=== PATIENT | male | born 1945 | race Caucasian/White ===

== ENCOUNTER 2018-12-23 21:58 | Inpatient (IN) | payer MEDICARE, MEDICAID ==
[~2018-12-23] VITALS: Ht 162.6 cm; Wt 110.8 kg
[~2018-12-23 21:58] MED LIST: ALLO100T PO; ATOR20TA PO; COL0.6T PO; COR3.125T PO; DABI150C PO; INSU100I12 SQ; LINA5TAB4 PO; MULT-1179 PO; OMEG-79 PO; SPIR25TA5 PO
[2018-12-23] MEDS: IDARUCIZUMAB 2.5 GM/50 ML IV SCH ×2 (22:37→22:50)
[2018-12-23 22:44] LABS: BASOPHILS # (AUTO) 0.1 X10'3 (0-0.2); BASOPHILS % (AUTO) 0.8 % (0-1); EOSINOPHILS # (AUTO) 0.4 X10'3 (0-0.9); EOSINOPHILS % (AUTO) 5.3 % (0-6); HEMATOCRIT 33.8 % (42.0-52.0); HEMOGLOBIN 11.1 g/dl (14.0-17.9); LYMPHOCYTES # (AUTO) 0.6 X10'3 (1.1-4.8); LYMPHOCYTES % (AUTO) 8.5 % (21-51); MEAN CORPUSCULAR HEMOGLOBIN 34.7 PG (27.0-31.0); MEAN CORPUSCULAR HGB CONC 32.8 g/dL (33.0-36.5); MEAN CORPUSCULAR VOLUME 105.7 FL (78-98); MEAN PLATELET VOLUME 10.4 FL (7.4-10.4); MONOCYTES # (AUTO) 1.2 X10'3 (0-0.9); MONOCYTES % (AUTO) 17.4 % (2-12); NEUTROPHILS # (AUTO) 4.6 X10'3 (1.8-7.7); PLATELET COUNT 98 X10'3 (140-440); RED CELL DISTRIBUTION WIDTH 17.3 % (11.5-14.5); WHITE BLOOD COUNT 6.8 X10'3 (4.5-11.0)
[2018-12-23 22:55] LABS: ALANINE AMINOTRANSFERASE 9 U/L (12-78); ALBUMIN 3.3 G/DL (3.4-5.0); ALBUMIN/GLOBULIN RATIO 0.8 (1.1-1.5); ALKALINE PHOSPHATASE 62 IU/L (46-116); ANION GAP 12 (8-16); ASPARTATE AMINO TRANSFERASE 10 U/L (10-37); BILIRUBIN,TOTAL 1.3 MG/DL (0.1-1.0); BLOOD UREA NITROGEN 126 MG/DL (7-18); BUN/CREATININE RATIO 29.9 (5.4-32.0); CALCIUM 8.6 MG/DL (8.5-10.1); CHLORIDE 108 MMOL/L (99-107); CREATININE 4.21 MG/DL (0.60-1.10); GLUCOSE 131 MG/DL (70-104); MAGNESIUM 2.2 MG/DL (1.5-2.4); PHOSPHORUS 5.4 MG/DL (2.3-4.5); POTASSIUM 4.4 MMOL/L (3.5-5.1); SODIUM 141 MMOL/L (135-145); TOTAL PROTEIN 7.4 G/DL (6.4-8.2); eGFR 14 ML/MIN
[2018-12-23] MEDS ORDERED: FURO-150 PO (23:09)
[2018-12-23] MEDS ORDERED: ASPI-611 PO (23:10)
[2018-12-23] MEDS ORDERED: LISI2.5T2 PO (23:11)
[2018-12-23] MEDS ORDERED: ALLO100T PO (23:13)
[2018-12-23] MEDS ORDERED: SPIR50TA5 PO (23:14)
[2018-12-23] MEDS ORDERED: CARV3.12 PO (23:15)
[2018-12-23] MEDS ORDERED: COLC0.6T69 PO (23:15)
[2018-12-23] MEDS ORDERED: LINA5TAB4 PO (23:16)
[2018-12-23] MEDS ORDERED: POTA8TAB57 (23:18)
[2018-12-23 23:23] LABS: ANISOCYTOSIS 1+; ELLIPTOCYTES FEW; PLATELET ESTIMATE DECREASED
[2018-12-24] VITALS (20 sets, daily range): BP systolic 70–123; BP diastolic 20–67
[2018-12-24] MEDS ORDERED: glucagon, human recombinant 1mg kit SUBCUT PRN (00:55)
[2018-12-24] MEDS ORDERED: ondansetron/PF 4mg/2ml inj IV PRN (00:55)
[2018-12-24] MEDS ORDERED: acetaminophen 650mg rectal suppository RC PRN (00:55)
[2018-12-24] MEDS ORDERED: insulin Lispro (HumaLOG) vial - multi-dose SQ SCH (00:55)
[2018-12-24] MEDS ORDERED: acetaminophen 325mg tablet PO PRN ×2 (00:55)
[2018-12-24] MEDS ORDERED: dextrose ORAL solution 15 GM/59 ML bottle PO PRN ×2 (00:55)
[2018-12-24] MEDS ORDERED: MESSAGE TO PHARMACY PO ONE (00:55)
[2018-12-24] MEDS ORDERED: dextrose 50%-water 50ml dispensing syringe IV PRN ×2 (00:55)
[2018-12-24] MEDS: albumin (human) 25% 100 ML IV solution IV SCH ×3 (01:17→17:10)
[2018-12-24] MEDS: bumetanide 0.25mg/ml 4ml vial IV SCH ×2 (01:41→09:59)
--- NOTE | 2018-12-24 02:43 | NUR ---
Patient here from ER into room CICU 2010. I have received report from Ronald PEDERSEN and had the opportunity to ask questions and assume patient care.
[2018-12-24 05:29] LABS: PLATELET COUNT 74 X10'3 (140-440)
[2018-12-24 05:37] LABS: BASOPHILS % (AUTO) 0.8 % (0-1); EOSINOPHILS # (AUTO) 0.4 X10'3 (0-0.9); EOSINOPHILS % (AUTO) 7.5 % (0-6); HEMATOCRIT 28.4 % (42.0-52.0); HEMOGLOBIN 9.7 g/dl (14.0-17.9); LYMPHOCYTES # (AUTO) 0.5 X10'3 (1.1-4.8); LYMPHOCYTES % (AUTO) 9.4 % (21-51); MEAN CORPUSCULAR HEMOGLOBIN 36.2 PG (27.0-31.0); MEAN CORPUSCULAR HGB CONC 34.2 g/dL (33.0-36.5); MEAN CORPUSCULAR VOLUME 105.8 FL (78-98); MONOCYTES % (AUTO) 20.1 % (2-12); NEUTROPHILS # (AUTO) 3.1 X10'3 (1.8-7.7); NEUTROPHILS % (AUTO) 62.2 % (42-75); PLATELET COUNT 80 X10'3 (140-440); RED BLOOD COUNT 2.68 X10'6 (4.70-6.10); RED CELL DISTRIBUTION WIDTH 16.8 % (11.5-14.5); WHITE BLOOD COUNT 5.1 X10'3 (4.5-11.0)
[2018-12-24] MEDS ORDERED: albumin (human) 25% 100 ML IV solution IV ONE (05:40)
[2018-12-24 05:47] LABS: ALANINE AMINOTRANSFERASE 7 U/L (12-78); ALBUMIN 3.4 G/DL (3.4-5.0); ALBUMIN/GLOBULIN RATIO 0.9 (1.1-1.5); ALKALINE PHOSPHATASE 52 IU/L (46-116); ANION GAP 11 (8-16); ASPARTATE AMINO TRANSFERASE 10 U/L (10-37); BILIRUBIN,TOTAL 1.3 MG/DL (0.1-1.0); BLOOD UREA NITROGEN 126 MG/DL (7-18); BUN/CREATININE RATIO 30.8 (5.4-32.0); CALCIUM 8.5 MG/DL (8.5-10.1); CHLORIDE 109 MMOL/L (99-107); CREATININE 4.09 MG/DL (0.60-1.10); GLUCOSE 102 MG/DL (70-104); MAGNESIUM 2.2 MG/DL (1.5-2.4); PHOSPHORUS 5.5 MG/DL (2.3-4.5); POTASSIUM 4.5 MMOL/L (3.5-5.1); SODIUM 142 MMOL/L (135-145); TOTAL CARBON DIOXIDE 21.9 MMOL/L (24-32); TOTAL PROTEIN 7.1 G/DL (6.4-8.2); eGFR 14 ML/MIN
[2018-12-24 05:48] LABS: D-DIMER 3.48 MG/L FEU (0-0.50); PARTIAL THROMBOPLASTIN TIME 49 SECONDS (22-32)
--- NOTE | 2018-12-24 06:35 | NUR ---
Pt hypotensive after albuminWillard updated. No new orders at this time. Problems reprioritized. Patient report given, questions answered & plan of care reviewed with Luz PEDERSEN .
[2018-12-24] MEDS ORDERED: DOPamine 400mg/D5W 250ml 250 ML IV SCH (06:50)
[2018-12-24 07:27] LABS: CLARITY,URINE CLEAR (Clear); COLOR,URINE YELLOW (Yellow); GLUCOSE, URINE NEGATIVE (Neg); KETONES,URINE NEGATIVE (Neg); LEUKOCYTE ESTERASE ,URINE NEGATIVE (Neg); NITRITES, URINE NEGATIVE (Neg); OCCULT BLOOD,URINE TRACE-INTACT (Neg); PH,URINE 5.5 (4.8-8.0); PROTEIN,URINE 30 mg/dl (Neg); UROBILINOGEN,URINE 0.2 E.U/dL (0.2-1.0)
[2018-12-24 07:35] LABS: BACTERIA,URINE NONE SEEN /HPF (Neg); RBC,URINE NONE SEEN /HPF (0-2); UA COLLECTION TYPE NON-SPECIFIED; WBC,URINE 0-4 /HPF (0-4)
[2018-12-24 07:36] LABS: COARSE GRANULAR CAST 0-3 /LPF (NEGATIVE); MUCUS STRANDS FEW /LPF (Neg); SQUAMOUS EPITHELIAL CELL,UR FEW /LPF (FEW)
[2018-12-24] MEDS ORDERED: famotidine 20mg tablet PO SCH (08:00)
[2018-12-24] MEDS: docusate sod 100mg capsule PO SCH ×2 (08:00→20:00)
[2018-12-24 08:10] LABS: OCCULT BLOOD STOOL POSITIVE (Neg)
[2018-12-24] MEDS: furosemide inj 100 MG in normal saline 100ml IV soln 90 ML IV SCH ×2 (13:47→21:13)
[2018-12-24 14:01] LABS: HEMATOCRIT 27.1 % (42.0-52.0); HEMOGLOBIN 9.1 g/dl (14.0-17.9); MEAN CORPUSCULAR HEMOGLOBIN 35.6 PG (27.0-31.0); MEAN CORPUSCULAR HGB CONC 33.5 g/dL (33.0-36.5); MEAN CORPUSCULAR VOLUME 106.2 FL (78-98); MEAN PLATELET VOLUME 10.5 FL (7.4-10.4); PLATELET COUNT 74 X10'3 (140-440); RED BLOOD COUNT 2.55 X10'6 (4.70-6.10); RED CELL DISTRIBUTION WIDTH 16.7 % (11.5-14.5); WHITE BLOOD COUNT 4.5 X10'3 (4.5-11.0)
[2018-12-24] MEDS ORDERED: albumin (Human) 5% 250ml 250 ML IV SCH (16:00)
[2018-12-24] MEDS ORDERED: NORepinephrine 8mg/ 250ml NS 250 ML IV PRN (17:41)
--- NOTE | 2018-12-24 18:30 | NUR ---
Patient in room CICU 2010. I have received report from Keara PEDERSEN and had the opportunity to ask questions and assume patient care.
[2018-12-24] MEDS: DOBUTamine-DoBUTrex 500mg/D5W 250 ML IV PRN (19:01)
[2018-12-24] MEDS ORDERED: gelatin sponge, absorbable (Gelfoam 100) sponge TP ONE (20:05)
[2018-12-24 20:57] LABS: HEMATOCRIT 26.5 % (42.0-52.0); HEMOGLOBIN 8.9 g/dl (14.0-17.9); MEAN CORPUSCULAR HEMOGLOBIN 35.5 PG (27.0-31.0); MEAN CORPUSCULAR HGB CONC 33.6 g/dL (33.0-36.5); MEAN CORPUSCULAR VOLUME 105.6 FL (78-98); MEAN PLATELET VOLUME 10.7 FL (7.4-10.4); PLATELET COUNT 73 X10'3 (140-440); RED BLOOD COUNT 2.51 X10'6 (4.70-6.10); RED CELL DISTRIBUTION WIDTH 16.8 % (11.5-14.5); WHITE BLOOD COUNT 4.8 X10'3 (4.5-11.0)
[2018-12-24] MEDS ORDERED: insulin glargine (Lantus) pen - multi-dose SQ SCH (21:00)
[2018-12-24 21:16] LABS: ALBUMIN 3.6 G/DL (3.4-5.0); ANION GAP 16 (8-16); BLOOD UREA NITROGEN 126 MG/DL (7-18); BUN/CREATININE RATIO 31.7 (5.4-32.0); CALCIUM 8.5 MG/DL (8.5-10.1); CHLORIDE 109 MMOL/L (99-107); CREATININE 3.97 MG/DL (0.60-1.10); GLUCOSE 116 MG/DL (70-104); MAGNESIUM 2.2 MG/DL (1.5-2.4); PHOSPHORUS 5.3 MG/DL (2.3-4.5); POTASSIUM 4.2 MMOL/L (3.5-5.1); SODIUM 143 MMOL/L (135-145); TOTAL CARBON DIOXIDE 18.4 MMOL/L (24-32); eGFR 15 ML/MIN
[2018-12-25] VITALS (20 sets, daily range): BP systolic 80–117; BP diastolic 21–80
[2018-12-25] MEDS: albumin (human) 25% 100 ML IV solution IV SCH ×3 (00:21→16:25)
[2018-12-25 03:04] LABS: BASOPHILS % (AUTO) 0.4 % (0-1); EOSINOPHILS # (AUTO) 0.2 X10'3 (0-0.9); EOSINOPHILS % (AUTO) 3.9 % (0-6); HEMATOCRIT 26.8 % (42.0-52.0); LYMPHOCYTES # (AUTO) 0.2 X10'3 (1.1-4.8); LYMPHOCYTES % (AUTO) 5.8 % (21-51); MEAN CORPUSCULAR HEMOGLOBIN 35.8 PG (27.0-31.0); MEAN CORPUSCULAR HGB CONC 33.6 g/dL (33.0-36.5); MEAN CORPUSCULAR VOLUME 106.8 FL (78-98); MEAN PLATELET VOLUME 10.6 FL (7.4-10.4); MONOCYTES # (AUTO) 0.3 X10'3 (0-0.9); MONOCYTES % (AUTO) 6.1 % (2-12); NEUTROPHILS # (AUTO) 3.6 X10'3 (1.8-7.7); NEUTROPHILS % (AUTO) 83.8 % (42-75); PLATELET COUNT 66 X10'3 (140-440); RED BLOOD COUNT 2.51 X10'6 (4.70-6.10); WHITE BLOOD COUNT 4.3 X10'3 (4.5-11.0)
[2018-12-25 03:06] LABS: ALBUMIN 3.8 G/DL (3.4-5.0); ALBUMIN/GLOBULIN RATIO 1.2 (1.1-1.5); ALKALINE PHOSPHATASE 42 IU/L (46-116); ANION GAP 15 (8-16); ASPARTATE AMINO TRANSFERASE 10 U/L (10-37); BILIRUBIN,TOTAL 1.5 MG/DL (0.1-1.0); BLOOD UREA NITROGEN 124 MG/DL (7-18); BUN/CREATININE RATIO 30.7 (5.4-32.0); CALCIUM 8.4 MG/DL (8.5-10.1); CHLORIDE 109 MMOL/L (99-107); CREATININE 4.04 MG/DL (0.60-1.10); GLUCOSE 112 MG/DL (70-104); PHOSPHORUS 5.6 MG/DL (2.3-4.5); POTASSIUM 4.3 MMOL/L (3.5-5.1); SODIUM 142 MMOL/L (135-145); TOTAL CARBON DIOXIDE 18.5 MMOL/L (24-32); TOTAL PROTEIN 6.9 G/DL (6.4-8.2); eGFR 15 ML/MIN
[2018-12-25] MEDS ORDERED: proCHLORperazine 10 MG/2 ml inj IV PRN (03:40)
[2018-12-25 03:41] LABS: PARTIAL THROMBOPLASTIN TIME 77 SECONDS (22-32)
[2018-12-25 03:42] LABS: ALANINE AMINOTRANSFERASE < 6 U/L (12-78)
[2018-12-25] MEDS: pantoprazole 40 MG vial IV SCH ×2 (03:50→07:44)
--- NOTE | 2018-12-25 04:19 | NUR ---
Pt having bouts of nausea, retching. Small amount emesis that is mostly mucus with scant blood. Mouth bleeding which he has been swallowing. Zofran given and was ineffective. Compazine and Protonix given. Pt is bearing down, moaning and shivering after retching. Dobutamine titrated between 2-4mcg for map between 65-70 as ordered. Urine output has also dropped the last 2 hrs and has become more cola colored, discussed with Sukhdeep Mora NP and Lasix gtt increased to 15mg/hr. Frequent flatus with abdominal cramping, small amount mucus stool when pt placed on bedpan, multiple times throughout shift. Critical PTT 77, INR increased to 3.9, Sukhdeep Mora COMPUTER TECH[employer]ICAL SUPPORT SPECIALIST aware. Central line in groin continued to ooze small amount. Dressing was changed using gelfoam at beginning of shift and pt will not allow a second dressing change due to discomfort of cleansing excoriated area under pannus.
--- NOTE | 2018-12-25 06:27 | NUR ---
Student documentation: I have reviewed and agree with all interventions, assessments performed and documented by Dalila VALENZUELA. Student Medication Administration: For this medication-pass time frame, all medication were reviewed, dispensed, administered and documented per hospital policy by Dalila VALENZUELA. Problems reprioritized. Patient report given, questions answered & plan of care reviewed with Herberth PEDERSEN.
[2018-12-25] MEDS: furosemide inj 100 MG in normal saline 100ml IV soln 90 ML IV SCH ×2 (07:00→14:34)
[2018-12-25] MEDS: IDARUCIZUMAB 2.5 GM/50 ML IV SCH ×2 (07:30→07:55)
[2018-12-25] MEDS: docusate sod 100mg capsule PO SCH (07:47)
[2018-12-25 08:54] LABS: HEMATOCRIT 27.7 % (42.0-52.0); HEMOGLOBIN 9.4 g/dl (14.0-17.9); MEAN CORPUSCULAR HEMOGLOBIN 36.2 PG (27.0-31.0); MEAN CORPUSCULAR HGB CONC 34.1 g/dL (33.0-36.5); MEAN CORPUSCULAR VOLUME 106.2 FL (78-98); MEAN PLATELET VOLUME 10.7 FL (7.4-10.4); PLATELET COUNT 70 X10'3 (140-440); RED BLOOD COUNT 2.61 X10'6 (4.70-6.10); RED CELL DISTRIBUTION WIDTH 16.5 % (11.5-14.5); WHITE BLOOD COUNT 7.3 X10'3 (4.5-11.0)
[2018-12-25 09:01] LABS: ALBUMIN 3.4 G/DL (3.4-5.0); ANION GAP 15 (8-16); BLOOD UREA NITROGEN 130 MG/DL (7-18); BUN/CREATININE RATIO 30.3 (5.4-32.0); CALCIUM 8.3 MG/DL (8.5-10.1); CHLORIDE 109 MMOL/L (99-107); CREATININE 4.29 MG/DL (0.60-1.10); GLUCOSE 132 MG/DL (70-104); MAGNESIUM 1.9 MG/DL (1.5-2.4); PHOSPHORUS 5.2 MG/DL (2.3-4.5); POTASSIUM 4.3 MMOL/L (3.5-5.1); SODIUM 142 MMOL/L (135-145); TOTAL CARBON DIOXIDE 18.3 MMOL/L (24-32); eGFR 14 ML/MIN
[2018-12-25] MEDS: DOBUTamine-DoBUTrex 500mg/D5W 250 ML IV PRN ×2 (09:46→13:36)
[2018-12-25 10:40] LABS: PARTIAL THROMBOPLASTIN TIME 33 SECONDS (22-32)
--- NOTE | 2018-12-25 15:05 | NUR ---
DM Consult: Pt A1C <7 and not appropriate for DM ed at this time. Addendum: 12/25/18 at [address] Amended: Links added.
[2018-12-25 15:10] LABS: HEMATOCRIT 26.6 % (42.0-52.0); HEMOGLOBIN 8.9 g/dl (14.0-17.9); MEAN CORPUSCULAR HEMOGLOBIN 35.6 PG (27.0-31.0); MEAN CORPUSCULAR HGB CONC 33.5 g/dL (33.0-36.5); MEAN CORPUSCULAR VOLUME 106.4 FL (78-98); MEAN PLATELET VOLUME 10.6 FL (7.4-10.4); PLATELET COUNT 69 X10'3 (140-440); RED CELL DISTRIBUTION WIDTH 16.6 % (11.5-14.5); WHITE BLOOD COUNT 8.1 X10'3 (4.5-11.0)
[2018-12-25 15:18] LABS: ALBUMIN 3.3 G/DL (3.4-5.0); ALBUMIN/GLOBULIN RATIO 1.3 (1.1-1.5); ANION GAP 16 (8-16); ASPARTATE AMINO TRANSFERASE 11 U/L (10-37); BILIRUBIN,TOTAL 2.2 MG/DL (0.1-1.0); BLOOD UREA NITROGEN 130 MG/DL (7-18); BUN/CREATININE RATIO 27.4 (5.4-32.0); CALCIUM 8.1 MG/DL (8.5-10.1); CHLORIDE 108 MMOL/L (99-107); CREATININE 4.75 MG/DL (0.60-1.10); GLUCOSE 161 MG/DL (70-104); MAGNESIUM 1.9 MG/DL (1.5-2.4); PHOSPHORUS 5.6 MG/DL (2.3-4.5); POTASSIUM 4.4 MMOL/L (3.5-5.1); SODIUM 144 MMOL/L (135-145); TOTAL CARBON DIOXIDE 19.9 MMOL/L (24-32); TOTAL PROTEIN 5.9 G/DL (6.4-8.2); eGFR 12 ML/MIN
[2018-12-25 15:19] LABS: ALKALINE PHOSPHATASE 35 IU/L (46-116)
[2018-12-25 15:21] LABS: ALANINE AMINOTRANSFERASE < 6 U/L (12-78)
--- NOTE | 2018-12-25 15:33 | NUR ---
Discussed with brother and [id number] who state that the patient will be taken to [facility] @ [address] [place] [id number]. Also called to [facility] who state that due to patient not being intubated he is not a donor candidate but to call when asystole occurs for possible tissue donor. Will continue to monitor.
[2018-12-25] MEDS ORDERED: LORazepam 2 mg/ml vial IV ONE (17:20)
[2018-12-25] MEDS ORDERED: LORazepam 2 mg/ml vial IV PRN (17:20)
[2018-12-25] MEDS: morphine 10mg/ml inj. IV PRN ×2 (17:47→18:51)
--- NOTE | 2018-12-25 18:10 | NUR ---
Patient in room CICU 2010. I have received report from Herberth PEDERSEN and had the opportunity to ask questions and assume patient care. Family at bedside, comfort care measures in place. Will continue to monitor.
--- NOTE | 2018-12-25 18:10 | NUR ---
Problems reprioritized. Patient report given, questions answered & plan of care reviewed with Aminta PEDERSEN.
--- NOTE | 2018-12-25 20:15 | NUR ---
RN IS TO DOCUMENT YES TO ALL APPLICABLE AREAS Pronouncement of : 1. Time Physician Notified: 1999 2. Date of : 12/25/18 3. Time of : 1956 4. DNR/Withdraw life support documented: Yes 5. Monitor strip has been placed on chart: Yes 6. Assessment process is of one-minute duration and includes following criteria: a) Patient is unresponsive to all stimuli: yes b) Pupils fixed and non-reactive: yes c) Auscultation of precordium reveals absence of heart tones: yes d) Auscultation of lungs reveals absence of breath sounds:yes e) Absence of blood pressure / all vital signs:yes f) QRS complexes are not present on monitor / EKG strip:see strip in chart g) Pacer spikes without capture: no capture, no pacer spikes 4. Comments: Mortuary called for hot die picker: [facility] [phone]
--- NOTE | 2018-12-25 21:02 | NUR ---
Donor network called, patient is candidate for tissue donation. Reference # [id number], spoke with
[2018-12-26] MEDS ORDERED: lactulose 20gm/30ml cup PO PRN (00:55)
== END 2018-12-25 23:00 | disposition expired | DRG 682 ==
LOC: ER 21:58 → ED HOLD 12-24 00:54 → CICU 2S 12-24 02:17
PROC: 06HY33Z Insertion of Infusion Device into Lower Vein, Percutaneous Approach (ICD-10-PCS; principal; 2018-12-24)
DX: N17.9 Acute kidney failure, unspecified (principal); I50.23 Acute on chronic systolic (congestive) heart failure; I13.0 Hypertensive heart and chronic kidney disease with heart failure and stage 1 through stage 4 chronic kidney disease, or unspecified chronic kidney disease; D68.9 Coagulation defect, unspecified; K62.5 Hemorrhage of anus and rectum; Z68.41 Body mass index [BMI] 40.0-44.9, adult; E11.22 Type 2 diabetes mellitus with diabetic chronic kidney disease; E78.00 Pure hypercholesterolemia, unspecified; E66.9 Obesity, unspecified; I25.5 Ischemic cardiomyopathy; K74.60 Unspecified cirrhosis of liver; R57.0 Cardiogenic shock; I25.10 Atherosclerotic heart disease of native coronary artery without angina pectoris; I48.91 Unspecified atrial fibrillation; N18.9 Chronic kidney disease, unspecified; R04.0 Epistaxis; Z51.5 Encounter for palliative care; Z66 Do not resuscitate; R31.9 Hematuria, unspecified; I25.2 Old myocardial infarction; Z91.14 Patient's other noncompliance with medication regimen; Z95.0 Presence of cardiac pacemaker; Z79.899 Other long term (current) drug therapy
CPT/HCPCS: 36415; 71045; 80053; 80069; 81001; 82272; 82948; 83036; 83605; 83735; 83880; 84100; 84145; 85025; 85027; 85379; 85384; 85610; 85730; 86885; 86900; 86901; 87040; 87081; 93005; 96374; 99285; C9113; G0378; J0780; J1250; J1265; J1815; J1940; J2060; J2270; J2405; J3490; J9211; P9047